=== PATIENT | male | born 1960 | race Caucasian/White ===

== ENCOUNTER 2023-06-17 10:06 | Outpatient (AMB) | payer MEDICARE, SELFPAY ==
--- NOTE | 2023-06-17 10:38 | MHC.OFFVIS ---
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 Arias with complaints of left knee pain. Patient reports gel injection about 2 months ago that did not provide him with relief. He states intermittent burning pain that gets worse at night. Hx of left knee arthroscopic surgery 09/07/20. He did get fairly good relief from that surgery initially. He reaggravated his knee approximately 1 year ago. He twisted his knee and had acute onset of pain. He has tried Tylenol and anti-inflammatory medicines which gave him minimal relief. Allergies No Known Allergies Allergy (Mild, Unverified 06/15/20 17:41) NONE [facility] Surgical History (Updated 06/17/23 @ 10:41 by NEFTALI Hernandez) History of back surgery History of left knee surgery Social History (Updated 06/17/23 @ 10:41 by NEFTALI Hernandez) Patient Tobacco Use Status: Never used Tobacco Current occupational status: unemployed Physical Exam Vital Signs: BMI result Body Mass Index 30.9 Const Other: Well-nourished well-developed very friendly male awake alert and oriented x3 in no acute distress Extrem Other: Bilateral lower extremity examination shows good capillary refill, no skin lesions noted, normal sensation light touch Left knee examination shows a minimal effusion, mild crepitus with range of motion, tenderness along his medial joint line, positive Luis's test, no instability Office Procedures Joint Injection/Drain Joint Injection/Drain Primary Site: left knee Prep: site was prepped using aseptic technique Injected: 40 mg of, Kenalog and 1% plain lidocaine Procedure: The patient tolerated the procedure well Coding 39431 - Large joint Procedure code (CPT) selection complete Results Reviewed Results Reviewed: 06/17/23 11:09 Lidocaine HCl 2 % MPF [Xylocaine 2 % MPF] 5 ml .ROUTE .STK-MED ONE Triamcinolone Acetonide [Kenalog-40] 40 mg .ROUTE .STK-MED ONE X-rays of the patient's left knee show mild to moderate diffuse joint space narrowing, no acute bony abnormalities Assessment & Plan Assessment & Plan (1) Left knee pain: Code(s): M25.562 - Pain in left knee Plan: Mr. Rajput presents with left knee pain and mechanical symptoms due to early degenerative joint disease as well as possible recurrent medial meniscus tearing. I had a lengthy discussion with the patient regarding the treatment options. He wishes to hold off on further surgery for as long as possible. I agree with this plan. The risks and benefits of a cortisone injection were discussed at length with the patient. The patient wished to proceed. He tolerated the injection well. He will continue with his activity modifications. He will follow up with me on an as-needed basis should his symptoms not plateau at an unacceptable level over the next few months. I spent 22 minutes in reviewing the patient's records and imaging studies, seeing the patient and documenting in the medical record. Orders: Orders XR knee LT 3V Today M25.562 - Pain in left knee AMB Joint Injection/Aspiration Today M25.562 - Pain in left knee Coding Level of Care Code Est Pt Level 2 (14068) Diagnoses Left knee pain M25.562 CPT Codes Coding - 85887 Large joint: 87188 - Large joint ([id number])
[2023-06-17 10:39] VITALS: BMI 30.9
== END 2023-06-17 11:24 | disposition home or self-care (01) ==
PROVIDERS: Visit Provider Orthopaedic Surgery
DX: M25.562 Pain in left knee (principal); M17.12 Unilateral primary osteoarthritis, left knee
CPT/HCPCS: 20610; 99204

== ENCOUNTER 2023-06-17 10:59 | Outpatient (REF) | payer MEDICARE, SELFPAY ==
--- NOTE | ~2023-06-17 | XR_ITS ---
EXAMINATION: XR KNEE, LEFT CLINICAL INFORMATION: Left knee pain COMPARISON: None available. TECHNIQUE: Three views of the left knee. FINDINGS: Joint effusion present. Vascular calcifications. Bones are diffusely demineralized. Small tricompartmental osteophytes. Moderate medial joint space narrowing. XR/XR knee LT 3V IMPRESSION: Joint effusion. Tricompartmental degenerative changes.
== END 2023-06-17 11:00 | disposition home or self-care (01) ==
LOC: HO.HOSX 10:59
PROVIDERS: Visit Provider Orthopaedic Surgery
DX: M25.562 Pain in left knee (principal)
CPT/HCPCS: 20610; 73562; J3301

== ENCOUNTER 2023-10-10 07:04 | Day surgery (SDC) | payer BC, SELFPAY ==
[2023-10-07 16:29] VITALS: BMI 31.2
--- NOTE | 2023-10-08 12:06 | HO.ANESPROP2 ---
HPI - Anesthesia Eval Consult details Narrative: 63yo M for Left Knee Arthroscopy, partial medial meniscetomy, Follows outside cardiology for TAA. Last office visit 07/2023. Stable. MELGOZA at baseline (follows pulmo), but able to do strength and cardio exercise ~ 5 x weekly. [facility] Active Problems Active Problems: All Active Problems (Updated 10/08/23 @ 11:45 by Honey Gutiérrez, LIVIER) Left knee pain (Acute) Past Medical History Medical History (Updated 10/08/23 @ 11:45 by Honey Gutiérrez RN) MELGOZA (dyspnea on exertion) Thoracic aortic aneurysm (TAA) Postoperative urinary retention Arthritis Hx of thyroid nodule Surgical History Surgical History (Updated 10/07/23 @ 16:26 by Honey Gutiérrez RN) Hx of fusion of cervical spine Hx of partial thyroidectomy Hx of umbilical hernia repair History of back surgery History of left knee surgery Social History Social History (Updated 06/17/23 @ 10:41 by NEFTALI Henrandez) Are you a primary lead caregiver to a significant other at home: No Do you presently have visiting nurse or other home services: No Patient Tobacco Use Status: Never used Tobacco Use of substances other than those prescribed or required for medical reasons: No Have you been hit, kicked, punched, or otherwise hurt by someone within the past year? If so, by whom?: No Are you DNR?: No Advance Directives: No Advance Directives Information Provided: Yes Advance Directives on File: No Recently lost weight without trying: No Nutrition Risks: No Nutritional Risk Current occupational status: unemployed Meds Allergies Allergy/AdvReac Type Severity Reaction Status Date / Time No Known Allergies Allergy Mild NONE Verified 10/07/23 16:23 Home Medications Medication Instructions Recorded Confirmed Last Taken Type Vitamin D3 10/07/23 10/07/23 Unknown History ibuprofen 10/07/23 Unknown History levothyroxine 100 mcg tablet 100 mcg PO DAILY 10/07/23 10/07/23 Unknown History oxycodone-acetaminophen 5 mg-325 1 tab PO Q6H PRN Pain 10/07/23 10/07/23 Unknown History mg tablet (Percocet) Exam Height,Weight and Vital Signs: Height 6 ft Weight 104.326 kg Narrative Narrative: EKG 07/2023 NSR @ 80 with borderline IVCD, poor R wave progression Otherwise normal Coronary CTA 08/2023 Mild CAD in RCA. No changes to tx plan and no further testing. ECHO 08/2023 1. LV size is nml with mild LVH and good LV systolic function - estimated EF ~60% 2. Diastolic filling pattern nml for the age of the patient 3. LA size is nml 4. Aortic valve is trileaflet and appears structurally normal. No aortic stenosis or regurg 5. Mitral valve is structurally nml with no significant MR or MS 6. Aortic root and ascending aorta are dilated measuring up to 4.1cm - unchanged from 2020 Assessment and Plan Assessment Anesthesia Assessment: Chart Reviewed
[2023-10-10] VITALS (11 sets, daily range): BP systolic 101–156; BP diastolic 59–96; PULSE 62–84; RESP 16–18; TEMP 36.4–36.6; O2SAT 94–100
--- NOTE | 2023-10-10 07:50 | HO.ANESPROP2 ---
FORM[facility]LY [facility] Active Problems Active Problems: All Active Problems (Updated 10/08/23 @ 11:45 by Honey Gutiérrez RN) Left knee pain (Acute) Past Medical History Medical History (Updated 10/08/23 @ 11:45 by Honey Gutiérrez RN) MELGOZA (dyspnea on exertion) Thoracic aortic aneurysm (TAA) Postoperative urinary retention Arthritis Hx of thyroid nodule Family History Family history of problems with anesthesia: No Surgical History Surgical History (Updated 10/07/23 @ 16:26 by Honey Gutiérrez RN) Hx of fusion of cervical spine Hx of partial thyroidectomy Hx of umbilical hernia repair History of back surgery History of left knee surgery History of Problems with Anesthesia: No Social History Social History (Updated 06/17/23 @ 10:41 by NEFTALI Hernandez) Are you a primary childcare center administrator to a significant other at home: No Do you presently have visiting nurse or other home services: No Patient Tobacco Use Status: Never used Tobacco Use of substances other than those prescribed or required for medical reasons: No Have you been hit, kicked, punched, or otherwise hurt by someone within the past year? If so, by whom?: No Are you DNR?: No Advance Directives: No Advance Directives Information Provided: Yes Advance Directives on File: No Recently lost weight without trying: No Nutrition Risks: No Nutritional Risk Current occupational status: unemployed Meds Allergies Allergy/AdvReac Type Severity Reaction Status Date / Time No Known Allergies Allergy Mild NONE Verified 10/07/23 16:23 Active Medications: Current Medications Lactated Ringer's (Lr) 1,000 mls @ 100 mls/hr IVCONT .Q10H [facility] Home Medications Medication Instructions Recorded Confirmed Last Taken Type Vitamin D3 10/07/23 10/07/23 Unknown History ibuprofen 10/07/23 Unknown History levothyroxine 100 mcg tablet 100 mcg PO DAILY 10/07/23 10/07/23 Unknown History oxycodone-acetaminophen 5 mg-325 1 tab PO Q6H PRN Pain 10/07/23 10/07/23 Unknown History mg tablet (Percocet) Exam Height,Weight and Vital Signs: Height 6 ft Weight 104.326 kg Last Vital Signs Temp 97.8 F 10/10/23 07:33 Pulse 65 10/10/23 07:33 Resp 16 10/10/23 07:33 BP 156/75 H 10/10/23 07:33 Pulse Ox 94 10/10/23 07:33 O2 Del Method Room Air 10/10/23 07:33 Airway Mallampati Class: II TM Dist: >3cm Neck ROM: Full Assessment and Plan Assessment Anesthesia Assessment: Anesthesia Plan Discussed and Chart Reviewed Final Anesthetic Review Family History of Problems with Anesthesia: No History of Problems with Anesthesia: No NPO: Yes ASA Class: II Final Preanesthetic Review: No Changes in Pt Med Stat, Meds/Allgs Chart Reviewed, Consent Obtained/Reviewed and Anes Risks/Benef Reviewed Patient Risk: Intermediate Procedure Risk: Low Anesthetic Plan Anesthetic Plan: GA Disposition: Standard PACU
[2023-10-10] MEDS: Lactated Ringers 1,000 ML 100 ML IVCONT (07:57)
--- NOTE | 2023-10-10 09:50 | PM.OP ---
Brief Operative Note Date of Service: 10/10/23 Pre-op diagnosis: Left knee medial meniscus tear, left knee degenerative joint disease Post-op diagnosis: same (Left knee medial meniscus tear, left knee degenerative joint disease, left knee lateral meniscus tear) Procedure: Left knee diagnostic arthroscopy with left knee arthroscopic partial medial and lateral meniscectomies, left knee arthroscopic chondroplasty of the undersurface of the patella, medial femoral condyle and trochlear groove Implants: none Surgeon: Matty Arias MD Anesthesia: GLMA Was an Gyroscope Repairer used for this Procedure?: No Estimated blood loss (mL): 10 Pathology: none sent Condition: stable Disposition: PACU
--- NOTE | 2023-10-10 09:51 | W.PM.OPN ---
Operative Note Operative Note Date of Service: 10/10/23 Narrative: After the patient was identified as Milo Rajput and their left knee was initialed by myself they were brought to the operating room where general anesthesia was induced by the anesthesiologist in routine fashion. The patient was given 2 g of IV Ancef preoperatively for infection prophylaxis. The patient's left lower extremity was prepped and draped in sterile fashion. A formal time-out was completed. Marcaine was injected into the planned incision sites as well as the patient's left knee joint. A #11 scalpel blade was used to make an anterolateral portal 1 cm proximal to the joint line and 1 cm lateral to the patellar tendon. Blunt trocar technique was used to enter the suprapatellar pouch with the knee in extension. Diagnostic arthroscopy showed multiple bands of thickened plica which would be excised at the end of the procedure. There were no loose bodies or abnormalities found in either the medial or lateral gutters. The articular surface of the patella showed diffuse grades 3 and 4 degenerative changes. The trochlear groove articular surface showed diffuse grades 2 and 3 degenerative changes. The patient's knee was flexed to 45 degrees and a valgus force was placed upon it. The medial compartment was entered. An anteromedial portal was made 1 cm proximal to the joint line and 1 cm medial to the patellar tendon. Probing of the medial meniscus showed a radial tear of the posterior horn. A partial medial meniscectomy was performed using the arthroscopic shaver. Following the partial meniscectomy the remainder of the meniscus tissue was stable. There were diffuse grades 2 and 3 degenerative changes of the medial femoral condyle as well as grades 3 and 4 degenerative changes of the medial tibial plateau. The articular surface of the medial femoral condyle was then made smooth using the arthroscopic shaver. The articular surface of the medial tibial plateau was already smooth so no chondroplasty was indicated. The patient's knee was placed into a neutral position. There was no injury to the anterior cruciate ligament. The patient's knee was then placed in the figure of 4 position and the lateral compartment was entered. There was a radial tear of the anterior horn of the lateral meniscus. A partial lateral meniscectomy was performed using the arthroscopic shaver. Following the partial lateral meniscectomy the remainder of the meniscus tissue was stable. There were minimal degenerative changes of the lateral femoral condyle and lateral tibial plateau. The patient's knee was once again brought into extension and the suprapatellar pouch was entered. The arthroscopic shaver and the ArthroCare Wand were used to excise the thickened bands of plica. The undersurface of the patella and the trochlear groove articular surface were then made smooth using the arthroscopic shaver. The knee joint was irrigated and then drained. All arthroscopic instruments were removed. The 2 portals were closed with 3-0 nylon interrupted suture. The knee joint was injected with Marcaine. Dry sterile dressing and Chriss bandages were placed over the patient's knee. The patient was awoken and extubated in the operating room. The patient was transferred to the recovery room in stable condition.
[2023-10-10] MEDS: fentaNYL citrate/PF 100 MCG/2 ML VIAL 50 MCG IVPUSH ×2 (10:05→10:25)
[2023-10-10] MEDS: oxyCODONE HCl Immed Release 5 MG TABLET 10 MG PO (10:07)
[2023-10-10] MEDS: cefTRIAXone sodium 1 GM in 0.9 % Sodium Chloride 50 ML IV (10:15)
== END 2023-10-10 11:15 | disposition home or self-care (01) ==
PROVIDERS: PCP Internal Medicine; Visit Provider Orthopaedic Surgery
PROC: (CPT 29870; principal; 2023-10-10 08:40)
DX: S83.242A Other tear of medial meniscus, current injury, left knee, initial encounter (principal); S83.282A Other tear of lateral meniscus, current injury, left knee, initial encounter; M17.12 Unilateral primary osteoarthritis, left knee; M67.52 Plica syndrome, left knee; X50.1XXA Overexertion from prolonged static or awkward postures, initial encounter; Y93.9 Activity, unspecified; Y92.9 Unspecified place or not applicable; Y99.9 Unspecified external cause status; Z98.890 Other specified postprocedural states
CPT/HCPCS: 29880; J0171; J0690; J0696; J1100; J1170; J1885; J2250; J2405; J2704; J2795; J3010

== ENCOUNTER → 2023-10-10 07:04 | Outpatient (BNV) | payer BC, SELFPAY | PROVIDERS: PCP Internal Medicine; Visit Provider Orthopaedic Surgery | DX: S83.242A Other tear of medial meniscus, current injury, left knee, initial encounter (principal); S83.282A Other tear of lateral meniscus, current injury, left knee, initial encounter | CPT/HCPCS: 29880 ==

== ENCOUNTER 2023-10-23 09:06 | Outpatient (AMB) | payer MEDICARE, SELFPAY ==
--- NOTE | 2023-10-23 09:07 | A.OFFVIS_ITS ---
Intake Intake Visit Reasons: PO-Lt Knee 10/10/23 Intake Note: Milo is a 63 year old male who presents for his post operative appointment S/P Left knee 10/10/2023 Patient reports that his pain is a 3/4 on the 1-10 pain scale and denies any fever or chills. Allergies No Known Allergies Allergy (Mild, Verified 10/07/23 16:23) NONE Medication List - Last Reconciled 10/23/23 by Matty Arias MD [ibuprofen ] levothyroxine 100 mcg PO DAILY oxycodone-acetaminophen 5-325 mg (Percocet) 1 tab PO Q6H PRN [Vitamin D3 ] PFSH Medical History MELGOZA (dyspnea on exertion) Thoracic aortic aneurysm (TAA) Postoperative urinary retention Arthritis Hx of thyroid nodule Surgical History Hx of fusion of cervical spine Hx of partial thyroidectomy Hx of umbilical hernia repair History of back surgery History of left knee surgery Social History Are you a primary dialysis patient care technician to a significant other at home: No Do you presently have visiting nurse or other home services: No Patient Tobacco Use Status: Never used Tobacco Current occupational status: unemployed Physical Exam Extrem Other: Left knee examination shows that the surgical incisions are healing well, no erythema, minimal discomfort with range of motion, minimal crepitus with range of motion Assessment & Plan Assessment & Plan (1) Left knee pain: Code(s): M25.562 - Pain in left knee Plan Mr. Rajput is doing well after undergoing left knee revision arthroscopic surgery on 10/10/2023. His sutures were removed and Steri-Strips placed over his incisions. He will gradually progress to activities as tolerated. He will follow up with me on an as-needed basis should his symptoms not plateau at an unacceptable level over the next few months. Feel free to call me at any time should questions regarding his orthopedic management arise. Coding Level of Care Code Global (24058) Diagnoses Left knee pain M25.562
== END 2023-10-23 09:30 | disposition home or self-care (01) ==
PROVIDERS: Visit Provider Orthopaedic Surgery
DX: M25.562 Pain in left knee (principal)
CPT/HCPCS: 99024

== ENCOUNTER → 2023-10-23 09:06 | Outpatient (BNVA) | payer MEDICARE, SELFPAY | PROVIDERS: Visit Provider Orthopaedic Surgery | DX: Z47.89 Encounter for other orthopedic aftercare (principal); M25.562 Pain in left knee; Z98.890 Other specified postprocedural states | CPT/HCPCS: 99212 ==